=== PATIENT | male | born 1945 ===

== ENCOUNTER 2021-08-16 11:15 | Day surgery (SDC) | payer MEDICARE ==
[2021-08-16] VITALS (8 sets, daily range): BP systolic 125–160; BP diastolic 62–89; PULSE 65–80; TEMP 97.8–97.9
[~2021-08-16] VITALS: Ht 182.9 cm; Wt 87.7 kg
[2021-08-16] MEDS ORDERED: FLOMAX 0.40.4 MG/CAP PO (12:50)
[2021-08-16] MEDS ORDERED: ZESTRIL40 MG PO (12:52)
[2021-08-16] MEDS ORDERED: CRESTOR20 MG PO (12:53)
[2021-08-16] MEDS ORDERED: ASPIRIN 81M81 MG/TA2 PO (12:54)
[2021-08-16] MEDS ORDERED: HCTZ 25MG TAB25 MG PO (12:54)
[2021-08-16] MEDS ORDERED: ZYLOPRIM 300MG300 MG PO (12:55)
[2021-08-16] MEDS ORDERED: NEXIUM 20MG20 MG PO (12:55)
[2021-08-16] MEDS ORDERED: PHARMASSURE ZIN50 MG PO (12:56)
[2021-08-16] MEDS ORDERED: NATURAL E400 IU PO (12:57)
--- NOTE | 2021-08-16 18:30 | NUR ---
Patient received post op. He is alert & oriented. Wanted to sit up in chair. He did well getting to chair. He is having neck discomfort. Orders for medication obtained. 2 tabs tylenol per orders. Lap site x6 bandaids intact. Ivf per orders. Scds. Vss. Will report off to nightnurse
[2021-08-17 00:07] VITALS: BP 105/49; PULSE 65; TEMP 98.2
[2021-08-17 04:15] VITALS: BP 111/59; PULSE 78; TEMP 97.5
[2021-08-17 08:00] VITALS: BP 135/81; PULSE 63; TEMP 97.3
--- NOTE | 2021-08-17 08:55 | NUR ---
PT RESTING IN BED, EATING BREAKFAST. MORNING MEDICATIONS GIVEN. SHIFT ASSESSMENT COMPLETED. PT DENIES ANY PAIN, REPORTS DISCOMFORT IN CHEST AND R SHOULDER. LAP SITES X6 C/D/I. BOWEL SOUNDS PRESENT. DENIES ANY NEEDS. WILL CONITNUE TO MONITOR.
--- NOTE | 2021-08-17 10:37 | NUR ---
dope maintenance worker met with patient to discuss discharge plan. Patient reports that he lives at home with his Nicky ([phone]) in [place]. Patient reports that he is very active and is independent with all of his ADL's. Does not utilize any DME to assist with mobility and has no O2 needs. PCP is Dr. Fleming at [facility] and utilizes [facility] in [place] for perscriptions. [facility] if they are book jacket cover machine operator. Patient reports that he does not have a DPOA-HC established and that he and his have been talking about creating one. Patient has 4 biological children. Education provided surrounding the parameters of a DPOA-HC. Patient verbalizes his understanding and wishes to creat one with his as they have planned. Patient is planning on returning home. Reports that he has 2 children that live close to him and many grandchildren who he is close with. Discharge plan: Home with spouse
[2021-08-17 11:57] VITALS: BP 139/73; PULSE 61; TEMP 97.6
--- NOTE | 2021-08-17 13:17 | NUR ---
First visit from the line clearance foreman. No needs right now.
== END 2021-08-17 14:02 | disposition home or self-care (01) ==
LOC: SDCO 11:15 → SURG 17:22 → SDCO 08-17 14:02
DX: K44.9 Diaphragmatic hernia without obstruction or gangrene (principal); K21.9 Gastro-esophageal reflux disease without esophagitis; I25.10 Atherosclerotic heart disease of native coronary artery without angina pectoris; M19.90 Unspecified osteoarthritis, unspecified site; M10.9 Gout, unspecified; E78.00 Pure hypercholesterolemia, unspecified; E78.5 Hyperlipidemia, unspecified; I10 Essential (primary) hypertension; Z79.899 Other long term (current) drug therapy; Z79.82 Long term (current) use of aspirin; Z87.891 Personal history of nicotine dependence
CPT/HCPCS: OP; J0690; J1100; J1885; J2405; J2704; J3010; J7120